=== PATIENT | female | born 2000 | race African-American/Black ===

== ENCOUNTER 2023-12-01 09:07 | Emergency (ER) | payer OTHER ==
[2023-12-01 09:11] VITALS: BP 113/66; PULSE 54; RESP 18; TEMP 97.7; BMI 38.4
[2023-12-01] MEDS ORDERED: LIDOCAINE 4% PATCH TP ONE (10:04)
[2023-12-01] MEDS ORDERED: KETOROLAC TROMETHAMINE 30 MG/1 ML VIAL ONE (10:04)
[2023-12-01] MEDS ORDERED: CYCLOBENZAPRINE HCL 10 MG TABLET (FP) ONE (10:04)
[2023-12-01] MEDS: CYCLOBENZAPRINE HCL 10 MG TABLET (FP) PO ONE (10:12)
[2023-12-01] MEDS: LIDOCAINE 4% PATCH TP ONE (10:12)
[2023-12-01] MEDS: KETOROLAC TROMETHAMINE 30 MG/1 ML VIAL IM ONE (10:12)
[2023-12-01] MEDS ORDERED: LIDOCAINE PATCH REMOVAL MC SCH (22:00)
== END 2023-12-01 10:51 | disposition home or self-care (01) ==
LOC: JERFT 09:07
PROC: 3E0133Z Introduction of Anti-inflammatory into Subcutaneous Tissue, Percutaneous Approach (ICD-10-PCS; principal; 2023-12-01)
DX: S83.91XA Sprain of unspecified site of right knee, initial encounter (principal); X50.1XXA Overexertion from prolonged static or awkward postures, initial encounter
CPT/HCPCS: 73562-TC-RT-FY; 99284-25